=== PATIENT | male | born 1945 | race Caucasian/White ===

== ENCOUNTER 2018-03-14 09:35 | Day surgery (SDC) | payer MEDICARE, BC ==
[2018-03-14] VITALS (11 sets, daily range): BP systolic 140–171; BP diastolic 74–106
[~2018-03-14] VITALS: Ht 175.3 cm; Wt 100.8 kg
[~2018-03-14 09:35] MED LIST: CHLO25TA2 PO; LISI40TA4 PO; TAMS0.4C32 PO; ZINC30CA PO
[2018-03-14] MEDS ORDERED: ASPI-1053 PO (10:10)
[2018-03-14] MEDS ORDERED: METO50TA17 PO (10:10)
[2018-03-14] MEDS ORDERED: METF500T PO (10:10)
[2018-03-14] MEDS ORDERED: ATOR40TA PO (10:10)
[2018-03-14] MEDS ORDERED: LISI-600 PO (10:10)
[2018-03-14] MEDS ORDERED: LIDOcaine/PRILOcaine 5gm cream TP ONE (10:20)
[2018-03-14] MEDS ORDERED: LORazepam 0.5 MG tablet PO PRN (10:20)
[2018-03-14] MEDS ORDERED: diphenhydrAMINE 25mg capsule PO PRN (10:20)
[2018-03-14] MEDS ORDERED: nitroGLYCERIN-Tridil 50MG/D5W 250 ML IV ONE (11:45)
[2018-03-14] MEDS ORDERED: midazolam 2 mg/2 ml injection ONE (11:45)
[2018-03-14] MEDS ORDERED: verapamil 2.5 mg/ml inj IV ONE (11:45)
[2018-03-14] MEDS ORDERED: iohexol 350MG/ML 100ml bottle IV ONE (11:46)
[2018-03-14] MEDS ORDERED: fentaNYL/PF 50MCG/1 ML 2ML syringe ONE (11:46)
[2018-03-14] MEDS ORDERED: LIDOcaine 1% 30ml preserv. free vial ONE (11:46)
[2018-03-14] MEDS ORDERED: heparin 1,000unit/ml 10ml vial 10 ML ONE (11:46)
[2018-03-14] MEDS ORDERED: HYDROcodone/acetaminophen 10/325mg tab PO PRN (13:40)
[2018-03-14] MEDS ORDERED: proCHLORperazine 10 MG/2 ml inj IV PRN (13:40)
[2018-03-14] MEDS ORDERED: OXAZEpam 15mg capsule PO PRN (13:40)
[2018-03-14] MEDS ORDERED: nitroGLYCERIN 0.4mg SUBLingual tab SL PRN (13:40)
[2018-03-14] MEDS ORDERED: ondansetron/PF 4mg/2ml inj IV PRN (13:40)
[2018-03-14] MEDS ORDERED: HYDROcodone/acetaminophen 5mg/325mg tablet PO PRN (13:40)
== END 2018-03-14 17:10 | disposition home or self-care (01) ==
LOC: SSTAY O 09:35
PROVIDERS: ATTEND Internal Medicine Interventional Cardiology
DX: I25.10 Atherosclerotic heart disease of native coronary artery without angina pectoris (principal); I10 Essential (primary) hypertension; E78.5 Hyperlipidemia, unspecified; I65.23 Occlusion and stenosis of bilateral carotid arteries; I44.1 Atrioventricular block, second degree; E11.9 Type 2 diabetes mellitus without complications; N40.0 Benign prostatic hyperplasia without lower urinary tract symptoms; G89.29 Other chronic pain; Z96.651 Presence of right artificial knee joint; Z98.52 Vasectomy status; Z85.828 Personal history of other malignant neoplasm of skin; Z79.84 Long term (current) use of oral hypoglycemic drugs; Z95.0 Presence of cardiac pacemaker; Z79.82 Long term (current) use of aspirin; Z98.890 Other specified postprocedural states; Z79.899 Other long term (current) drug therapy
CPT/HCPCS: 82948; 93005; 93458; 99152; 99153; A6257; C1769; J1644; J2250; J3010; J3490; J7030; Q0163; Q9967; A4620

== ENCOUNTER 2018-06-22 07:34 | Inpatient (IN) | payer MEDICARE, BC ==
[2018-06-22] VITALS (18 sets, daily range): BP systolic 101–146; BP diastolic 39–80
[~2018-06-22] VITALS: Ht 175.3 cm; Wt 97.7 kg
[~2018-06-22 07:34] MED LIST changes: +ASPI-1053 PO; +ATOR40TA PO; +DIAZ5TAB23 PO; +DOCUMENT DATE & TIME OF BETA-BLOCKER PO ONE; +HYDR-3965 PO; +LISI-600 PO; -LISI40TA4 PO; +METF500T PO; +METO-384 PO; +ROPIVAcaine 0.5% (5mg/ml) 30ml vial ONE; +VANCOMYCIN INJ 1000 MG in NORMAL SALINE 250ml IV.SOLN IV ONE; -ZINC30CA PO; +cefazolin/dext.iso 2gm/50ml 50 ML IV ONE; +famotidine 20mg tablet PO ONE; +ringers solution, lacted 1,000 ML IV SCH; +tranexamic acid inj. 1,000 MG in normal saline 100ml IV soln 90 ML IV ONE
[2018-06-22] MEDS ORDERED: LIDOcaine 1% (10mg/ml) 2ml vial ONE (08:32)
[2018-06-22] MEDS ORDERED: ketorolac trometh. 30mg/ml inj. ONE (09:33)
[2018-06-22] MEDS ORDERED: ROPIVAcaine 0.5% (5mg/ml) 30ml vial ONE (09:34)
[2018-06-22] MEDS ORDERED: vancomycin 1,000mg inj ONE (09:34)
[2018-06-22 09:36] LABS: BASOPHILS % (AUTO) 0.4 % (0-1); EOSINOPHILS # (AUTO) 0.2 X10'3 (0-0.9); EOSINOPHILS % (AUTO) 2.8 % (0-6); LYMPHOCYTES # (AUTO) 2.3 X10'3 (1.1-4.8); LYMPHOCYTES % (AUTO) 28.6 % (21-51); MEAN CORPUSCULAR HEMOGLOBIN 30.7 PG (27.0-31.0); MEAN CORPUSCULAR HGB CONC 33.7 % (33.0-36.5); MEAN CORPUSCULAR VOLUME 91.2 FL (78-98); MEAN PLATELET VOLUME 9.5 FL (7.4-10.4); MONOCYTES # (AUTO) 0.8 X10'3 (0-0.9); MONOCYTES % (AUTO) 9.2 % (2-12); NEUTROPHILS # (AUTO) 4.8 X10'3 (1.8-7.7); PRE OP HEMATOCRIT 43.1 % (42.0-52.0); PRE OP HEMOGLOBIN 14.5 g/dL (14.0-17.9); PRE OP PLATELET COUNT 218 X10'3 (140-440); RED BLOOD COUNT 4.72 X10'6 (4.70-6.10); RED CELL DISTRIBUTION WIDTH 12.9 % (11.5-14.5)
[2018-06-22] MEDS ORDERED: fentaNYL/PF 50MCG/1 ML 2ML syringe ONE ×2 (09:41→12:06)
[2018-06-22] MEDS ORDERED: LIDOcaine 2% (20mg/ml) 5ml vial ONE (09:42)
[2018-06-22] MEDS ORDERED: ondansetron/PF 4mg/2ml inj ONE (09:42)
[2018-06-22] MEDS ORDERED: midazolam 2 mg/2 ml injection ONE (09:42)
[2018-06-22] MEDS ORDERED: propofol inj 20 ML IV ONE (09:42)
[2018-06-22 09:51] LABS: ALBUMIN 3.3 G/DL (3.4-5.0); ALBUMIN/GLOBULIN RATIO 0.8 (1.1-1.5); ALKALINE PHOSPHATASE 143 IU/L (46-116); BLOOD UREA NITROGEN 18 MG/DL (7-18); BUN/CREATININE RATIO 22.5 (5.4-32.0); CHLORIDE 101 MMOL/L (99-107); PRE OP ALT 42 U/L (30-65); PRE OP ANION GAP 11 (8-16); PRE OP AST 26 U/L (10-37); PRE OP BILIRUB, TOTAL 1.8 MG/DL (0.0-1.0); PRE OP GLUCOSE 166 MG/DL (70-104); PRE OP POTASSIUM 3.6 MMOL/L (3.4-5.1); PRE OP SODIUM 139 MMOL/L (135-145); TOTAL CARBON DIOXIDE 26.6 MMOL/L (24-32); TOTAL PROTEIN 7.5 G/DL (6.4-8.2); eGFR > 90 ML/MIN
[2018-06-22] MEDS ORDERED: sevoflurane 250ml liquid IH ONE (09:55)
[2018-06-22] MEDS ORDERED: dexamethasone sod phosphate 10mg/ml inj ONE (09:55)
[2018-06-22 10:00] LABS: HEMOGLOBIN A1C 7.9 % (4.5-6.2)
[2018-06-22] MEDS ORDERED: ePHEDrine 50MG/ML INJ. ONE (10:28)
[2018-06-22] MEDS ORDERED: ringers solution, lacted 1,000 ML IV SCH (10:58)
[2018-06-22] MEDS ORDERED: morphine 4 MG/ML inj SYRINge IV PRN ×2 (11:00)
[2018-06-22] MEDS ORDERED: ondansetron/PF 4mg/2ml inj IV PRN ×2 (11:00→12:35)
[2018-06-22] MEDS ORDERED: hydrALAZINE 20mg/ml inj. IV PRN (11:00)
[2018-06-22] MEDS ORDERED: fentaNYL/PF 50MCG/1 ML 2ML syringe IV PRN ×2 (11:00)
[2018-06-22] MEDS ORDERED: labetalol 20mg/4ml (5mg/ml) syringe IV PRN (11:00)
[2018-06-22] MEDS ORDERED: oxyCODONE IR 5mg (immed. release) tablet PO PRN ×2 (12:35)
[2018-06-22] MEDS ORDERED: diazepam 5mg tablet PO PRN (12:35)
[2018-06-22] MEDS ORDERED: magnesium hydroxide 30ml (MOM) UD suspension PO PRN (12:35)
[2018-06-22] MEDS ORDERED: diphenhydrAMINE 25mg capsule PO PRN ×2 (12:35)
[2018-06-22] MEDS ORDERED: HYDROmorphone 1 mg/ml syringe IV PRN ×2 (12:35)
[2018-06-22] MEDS ORDERED: acetaminophen 325mg tablet PO PRN (12:35)
[2018-06-22] MEDS ORDERED: bisacodyl 10mg suppository rectal RC PRN (12:35)
[2018-06-22] MEDS: ketorolac tromethamine 15mg/ml inj. IV SCH ×2 (14:14→21:01)
[2018-06-22] MEDS: acetaminophen 325mg tablet PO SCH ×2 (14:14→21:01)
[2018-06-22] MEDS: gabapentin 300mg capsule PO SCH ×2 (14:14→21:00)
[2018-06-22] MEDS ORDERED: tranexamic acid inj. 1,000 MG in normal saline 100ml IV soln 100 ML IV ONE (15:30)
[2018-06-22] MEDS: potassium cl 20mEq in 1/2 NS 1,000 ML IV SCH (15:38)
[2018-06-22] MEDS: ceFAZolin 1GM/D5W- ADD-VANTAGE 50 ML IV SCH (16:44)
[2018-06-22] MEDS ORDERED: vancomycin/NS 1 GM ADD-VANTAGE 250 ML IV SCH (20:00)
[2018-06-22] MEDS: metFORMIN 500mg tablet PO SCH (20:59)
[2018-06-22] MEDS: metoprolol succinate 25mg (24-HOUR) SR. Tablet PO SCH (21:00)
[2018-06-22] MEDS ORDERED: sennosides 8.6mg tablet PO SCH (21:00)
[2018-06-22] MEDS ORDERED: lisinopril 20mg tablet PO SCH (21:00)
[2018-06-22] MEDS ORDERED: atorvastatin 20mg tablet PO SCH (21:00)
[2018-06-23] MEDS: ceFAZolin 1GM/D5W- ADD-VANTAGE 50 ML IV SCH (01:05)
[2018-06-23] MEDS: potassium cl 20mEq in 1/2 NS 1,000 ML IV SCH ×2 (01:10→04:32)
[2018-06-23 02:00] VITALS: BP 132/55
[2018-06-23] MEDS: acetaminophen 325mg tablet PO SCH ×2 (02:45→07:19)
[2018-06-23] MEDS: ketorolac tromethamine 15mg/ml inj. IV SCH ×2 (02:46→07:18)
[2018-06-23 06:00] VITALS: BP 126/45
[2018-06-23 06:54] LABS: BASOPHILS % (AUTO) 0 % (0-1); EOSINOPHILS # (AUTO) 0.3 X10'3 (0-0.9); EOSINOPHILS % (AUTO) 1.5 % (0-6); HEMATOCRIT 38.6 % (42.0-52.0); HEMOGLOBIN 12.8 g/dl (14.0-17.9); LYMPHOCYTES % (AUTO) 5.4 % (21-51); MEAN CORPUSCULAR HEMOGLOBIN 30.9 PG (27.0-31.0); MEAN CORPUSCULAR HGB CONC 33.2 % (33.0-36.5); MEAN CORPUSCULAR VOLUME 93.2 FL (78-98); MONOCYTES % (AUTO) 5.5 % (2-12); NEUTROPHILS # (AUTO) 15.3 X10'3 (1.8-7.7); NEUTROPHILS % (AUTO) 87.6 % (42-75); PLATELET COUNT 193 X10'3 (140-440); RED BLOOD COUNT 4.15 X10'6 (4.70-6.10); RED CELL DISTRIBUTION WIDTH 12.9 % (11.5-14.5); WHITE BLOOD COUNT 17.5 X10'3 (4.5-11.0)
[2018-06-23] MEDS: metFORMIN 500mg tablet PO SCH (07:18)
[2018-06-23] MEDS: metoprolol succinate 25mg (24-HOUR) SR. Tablet PO SCH (07:18)
[2018-06-23] MEDS: gabapentin 300mg capsule PO SCH (07:19)
[2018-06-23 07:29] LABS: ANION GAP 12 (8-16); CHLORIDE 102 MMOL/L (99-107); POTASSIUM 4.2 MMOL/L (3.5-5.1); SODIUM 137 MMOL/L (135-145)
[2018-06-23] MEDS ORDERED: tamsulosin 0.4mg capsule PO SCH (08:00)
[2018-06-23] MEDS ORDERED: aspirin 81mg tab.chew PO SCH (08:00)
[2018-06-23] MEDS ORDERED: chlorthalidone 25mg tablet PO SCH (08:00)
[2018-06-23] MEDS ORDERED: aspirin 325mg tablet PO SCH (08:30)
[2018-06-23 10:00] VITALS: BP 112/43
[2018-06-23] MEDS ORDERED: celeCOXIB 100mg capsule PO SCH (20:00)
[2018-06-24] MEDS ORDERED: acetaminophen 325mg tablet PO PRN (12:35)
== END 2018-06-23 11:10 | disposition home or self-care (01) | DRG 483 ==
LOC: PAS IN 07:34 → EDSTATUS 10:30 → ORTHO 4S 13:30
PROVIDERS: ADMIT Orthopaedic Surgery; ATTEND Orthopaedic Surgery
PROC: 0LS40ZZ Reposition Left Upper Arm Tendon, Open Approach (ICD-10-PCS; 2018-06-22)
PROC: 3E0T3BZ Introduction of Anesthetic Agent into Peripheral Nerves and Plexi, Percutaneous Approach (ICD-10-PCS; 2018-06-22)
PROC: 0RRK00Z Replacement of Left Shoulder Joint with Reverse Ball and Socket Synthetic Substitute, Open Approach (ICD-10-PCS; principal; 2018-06-22 10:00)
DX: S42.142A Displaced fracture of glenoid cavity of scapula, left shoulder, initial encounter for closed fracture (principal); D62 Acute posthemorrhagic anemia; E11.9 Type 2 diabetes mellitus without complications; J44.9 Chronic obstructive pulmonary disease, unspecified; M75.102 Unspecified rotator cuff tear or rupture of left shoulder, not specified as traumatic; E78.5 Hyperlipidemia, unspecified; N40.0 Benign prostatic hyperplasia without lower urinary tract symptoms; W18.39XA Other fall on same level, initial encounter; I10 Essential (primary) hypertension; I25.10 Atherosclerotic heart disease of native coronary artery without angina pectoris; M19.112 Post-traumatic osteoarthritis, left shoulder; Z87.891 Personal history of nicotine dependence; Y93.89 Activity, other specified; Y92.89 Other specified places as the place of occurrence of the external cause; Y99.8 Other external cause status
CPT/HCPCS: 36415; 80051; 80053; 82948; 83036; 85025; 87070; 97116; 97162; 97530; A4565; A7000; G0378; J0690; J1100; J1170; J1885; J2001; J2250; J2405; J2704; J2795; J3010; J3370; J3490; J7030; J7040; J7120